=== PATIENT | male | born 1985 | race Caucasian/White ===

== ENCOUNTER → 2017-01-13 | Outpatient (CLI) | payer OTHER ==
[~2017-01-13] MED LIST: LORA10CA PO; PANT40TA2 PO
--- NOTE | 2017-01-13 16:12 | Diagnostic Imaging Report ---
PA and lateral views of the chest. INDICATION: Cough and dyspnea. Comparison: 12/29/2010. FINDINGS: The lungs are clear. The heart size is normal. No effusion or pneumothorax. The mediastinum and clyde appear unremarkable. IMPRESSION: Unremarkable exam. Dictated by: Dictated on workstation # [id number]
== END ==
LOC: RAD 10:02
PROVIDERS: ATTEND Nurse Practitioner
DX: R05 Cough (principal); R06.2 Wheezing; R06.09 Other forms of dyspnea
CPT/HCPCS: 71020

== ENCOUNTER → 2017-07-06 | Outpatient (CLI) | payer OTHER ==
--- NOTE | 2017-07-06 18:09 | Diagnostic Imaging Report ---
Three views of the cervical spine. INDICATION: Neck pain. FINDINGS: The alignment of the posterior spinal line is satisfactory. The vertebral body heights are preserved. Disc heights are also preserved. No widening of the predental space. There is satisfactory alignment of the lateral masses of C1 and C2. No significant degenerative changes or osteophyte formation seen. The prevertebral soft tissues appear unremarkable. IMPRESSION: Unremarkable exam. Dictated by: Dictated on workstation # [id number]
--- NOTE | 2017-07-06 18:10 | Diagnostic Imaging Report ---
EXAMINATION: Three views of the thoracic spine. INDICATION: Back pain. FINDINGS: There is straightening of the thoracic normal kyphotic curvature. This could be related to muscle spasm. The vertebral body heights are preserved. The disc heights are preserved. No significant osteophyte formation is seen. There is preserved alignment at the posterior spinal line. The paraspinous soft tissues demonstrate slightly prominent cardiac size, probably exaggerated by the AP projection with no definite abnormality otherwise. IMPRESSION: Straightening of the thoracic spine curvature, may relate to muscle spasm. Dictated by: Dictated on workstation # [id number]
== END ==
LOC: RAD 15:51
DX: M54.6 Pain in thoracic spine; M54.2 Cervicalgia
CPT/HCPCS: 72040; 72072

== ENCOUNTER → 2018-11-29 | Outpatient (CLI) | payer OTHER ==
--- NOTE | 2018-11-29 15:29 | Diagnostic Imaging Report ---
PROCEDURE: MR imaging cervical spine without contrast. TECHNIQUE: Multiplanar, multisequence MR imaging of the cervical spine was performed without contrast. INDICATION: Neck pain. COMPARISON: There are no prior MRI examinations available for comparison. The plain film examination of the cervical spine performed on 07/06/2017 failed to show any sign of an acute abnormality. FINDINGS: On the T2 sagittal images of this exam, the vertebral body heights appear to be within normal limits. The intervertebral disc spaces are well-maintained although there is desiccation of the disc at every level. Thecal sac is generous and there is no evidence for central stenosis at any level. There is mild narrowing of the neural foramina on the left at C4-5 and C3-4. No other significant neural foraminal narrowing is seen. There is no abnormal signal arising from the osseous structures to suggest bone edema or a fracture. There is no sign of a cord lesion. There is no paraspinal mass visualized. IMPRESSION: 1. There is mild narrowing of the neural foramen on the left at C3-4 and C4-5. There is no evidence for central stenosis at any level of the cervical spine. 2. There is no acute bony abnormality noted and there is no sign of a cord lesion. Dictated by: Dictated on workstation # [id number]
== END ==
LOC: RAD 14:25
PROVIDERS: ATTEND Nurse Practitioner Family
DX: M48.02 Spinal stenosis, cervical region (principal)
CPT/HCPCS: 72141

== ENCOUNTER → 2019-06-25 | Outpatient (CLI) | payer OTHER ==
--- NOTE | 2019-06-25 19:27 | Diagnostic Imaging Report ---
Exam: MRI right fifth finger without contrast. Date: June 25, 2019. Indication: 34-year-old male, right fifth finger mass. Comparison: None. Technique: Multiple dedicated MRI sequences without contrast at the level of the right fifth finger were obtained. Findings: At the area of focal patient concern which is denoted by a marker which is near the level of the fifth proximal interphalangeal joint at its radial aspect, there is a round T1 hypointense mass measuring 7.5 x 5.0 cm in axial dimension. The mass is difficult to appreciate on the provided coronal and sagittal sequences. Mass also appears fairly low signal on the fluid sensitive sequences. The mass is within the subcutaneous tissues and does not directly abut the adjacent flexor tendon of the fifth digit. Postcontrast imaging was not performed to assess for possible enhancement of the mass. The visualized flexor tendons are intact and without evidence of tenosynovitis. The visualized portions of the extensor tendons are intact. Additional soft tissue assessment is unremarkable. There is no prominent edema adjacent to the site of the mass. The bone marrow signal is unremarkable. Specifically, there is no bone lesion, fracture, bone contusion, or other bone marrow signal abnormality. There are some limitations of the exam relating to positioning of the patient, particularly on the coronal and sagittal sequences. The collateral ligaments at the level of the fifth metacarpophalangeal joint are intact and not well evaluated at the level of the 5th proximal interphalangeal joint. The volar plates appear grossly intact. Impression: 1. Nonspecific low signal mass within the subcutaneous tissues within the volar and radial aspect of the fifth digit at the level of the fifth proximal interphalangeal joint measuring 8 x 5 mm in size. There is no direct contact with the adjacent tendon sheath of the fifth digit flexor tendons. Both benign and malignant etiologies are in the differential diagnosis for the mass. Postcontrast imaging was not performed. Biopsy and/or excision may be needed for a definitive diagnosis. 2. Additional evaluation at the level of the right fifth finger is unremarkable. Dictated by: Dictated on workstation # [id number]
== END ==
LOC: RAD 13:06
PROVIDERS: ATTEND Orthopaedic Surgery
DX: R22.31 Localized swelling, mass and lump, right upper limb (principal)
CPT/HCPCS: 73218

== ENCOUNTER 2020-07-03 05:39 | Outpatient (CLI) | payer OTHER ==
[~2020-07-03] VITALS: Ht 185 cm; Wt 122.7 kg
[2020-07-03] MEDS ORDERED: CETI10TA17 PO (11:54)
[2020-07-03] MEDS ORDERED: MULT-1136 PO (11:54)
[2020-07-03] MEDS ORDERED: FLUT9.9S16 NS (11:54)
== END 2020-07-03 11:58 | disposition home or self-care (01) ==
LOC: PREOP 05:39
PROVIDERS: ATTEND Internal Medicine
DX: Z01.818 Encounter for other preprocedural examination (principal)

== ENCOUNTER → 2020-07-09 | Outpatient (CLI) | payer OTHER ==
[~2020-07-09] MED LIST changes: +CETI10TA17 PO; +FLUT9.9S16 NS; +MULT-1136 PO
== END ==
LOC: LABNPT 05:57
PROVIDERS: ATTEND Internal Medicine
DX: Z01.818 Encounter for other preprocedural examination (principal); Z01.812 Encounter for preprocedural laboratory examination; K62.89 Other specified diseases of anus and rectum; Z20.828 Contact with and (suspected) exposure to other viral communicable diseases
CPT/HCPCS: 87635

== ENCOUNTER 2020-07-11 07:40 | Day surgery (SDC) | payer OTHER ==
--- NOTE | 2020-06-30 06:38 | HISTORY AND PHYSICAL ---
DATE OF SERVICE: COLONOSCOPY HISTORY AND PHYSICAL HISTORY OF PRESENT ILLNESS: The patient is a 35-year-old white male referred by Dr. Gómez for diagnostic colonoscopy. He reports over the past year, although it has been worse over the past month, he has had increased left lower quadrant abdominal pressure alleviated with a bowel movement. He has had change in stool caliber with flattening of the stool and some small volume bright red blood per rectum. He also reports in the act of defecation, he will note tingling in the right lower extremity involving the thigh, knee and calf. He does not believe it goes down to the level of the foot. He has had no associated trauma. He reports a 30-pound weight gain over the last year or two. He denies night sweats, chills or fever. He Denies any constipation or diarrhea problems, although again he does note change in stool caliber. He has no past history of colonoscopy. He does report for heartburn type symptoms in 2016, underwent EGD evaluation per Dr. Wright. He was noted to have grade II erosive esophagitis per Dr. Wright with 2 small benign appearing distal gastric ulcers. He was H. pylori negative. He takes proton pump inhibitor therapy for a while and his symptoms resolved. He denies any significant heartburn symptoms currently, dysphagia or melena. 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 He has a 5-pack-year smoking history, but quit 12 years ago. He still reports drinking on average about 10 beers per day. FAMILY HISTORY: Father is living at the age of 58, had an CA at the age of 54. Mother is living at the age of 58 with history of hypertension with no known vascular disease. He is not aware of any history of colon cancer or other GI tract malignancies. Other than his parents, he does not know a lot about his family medical history. REVIEW OF SYSTEMS: CONSTITUTIONAL: Pertinent for a 30-pound weight gain over the past year. Denies night sweats, chills or fever. CARDIOVASCULAR: Denies chest pain, shortness of breath, syncope or presyncope. PULMONARY: Denies cough, wheezing or shortness of breath. GASTROINTESTINAL: As noted in the HPI. PHYSICAL EXAMINATION: GENERAL: Reveals a pleasant overweight white male in no acute distress. VITAL SIGNS: Weight 274 pounds, blood pressure 140/92. HEENT: Unremarkable. CHEST: Clear to auscultation. CARDIOVASCULAR: Reveals a regular rate and rhythm without murmur, S3 or S4. ABDOMEN: Soft, supple without mass or organomegaly. He has left upper quadrant and left lower quadrant discomfort to palpation. EXTREMITIES: Reveal no cyanosis, clubbing or edema. RECTAL: Deferred at the time of colonoscopy. ASSESSMENT AND PLAN: The patient is set up for diagnostic colonoscopy due to left lower quadrant and left upper quadrant abdominal pain, rectal pain and change in stool caliber. Prep instructions with Suprep kit were given and questions were answered. I thank you for the referral of this pleasant gentleman. Job ID: [id number] DocumentID: [id number] Dictated Date: 06/25/2020 16:15:18 Financial Processing Clerk Date: 06/25/2020 17:18:45 Dictated By: ROCKY OROZCO MD MTDD
[~2020-07-11] VITALS: Ht 185 cm; Wt 122.7 kg
[2020-07-11] VITALS (8 sets, daily range): BP systolic 109–138; BP diastolic 66–83
[2020-07-11] MEDS ORDERED: LACTATED RINGERS 1,000 ML IV ONE (07:56)
[2020-07-11] MEDS ORDERED: LACTATED RINGERS 1,000 ML IV PRN (08:00)
[2020-07-11] MEDS ORDERED: proPOfol 200 MG/20 ML (DIPRIVAN) VIAL IV ONE (08:33)
[2020-07-11] MEDS ORDERED: LIDOCAINE JELLY 2% 6 ML SYRINGE ONE (08:34)
[2020-07-11] MEDS ORDERED: MIDAZOLAM 2 MG/2 ML (VERSED) VIAL ONE (08:34)
--- NOTE | 2020-07-11 08:40 | Pre-Op Note & Conscious Sedat ---
Pre-Operative Progress Note H&P Reviewed The H&P was reviewed, patient examined and no changes noted. Date H&P Reviewed: Jul 11, 2020 Time H&P Reviewed: 08:00 Conscious Sedation Pre-Proced ASA Score 2 For ASA 3 and 4: Consider anesthesia and medical clearance. Also, for patients with a history of failed moderate sedation consider anesthesia. Airway Lungs Heart ASA score ASA 1: a normal healthy patient ASA 2: a patient with a mild systemic disease (mid diabetes, controlled hypertension, obesity ASA 3: a patient with a severe systemic disease that limits activity (angina, COPD, prior Myocardial infarction) ASA 4: a patient with an incapacitating disease that is a constant threat to life (CHF, renal failure) ASA 5: a moribund patient not expected to survive 24 hrs. (ruptured aneurysm) ASA 6: a declared brain- patient whose organs are being harvested. For emergent operations, add the letter E after the classification Mallampati Classification Grade 3 Sedation Plan Analgesia, Amnesia, Plan communicated to team members, Discussed options with patient/fam, Discussed risks with patient/fam The patient is an appropriate candidate to undergo the planned procedure, sedation, and anesthesia. The patient immediately re-assessed prior to indication. ROCKY OROZCO MD Jul 11, 2020 08:40
[2020-07-11] MEDS ORDERED: LIDOCAINE JELLY 2% 6 ML SYRINGE TOP ONE (09:15)
--- NOTE | 2020-07-11 09:57 | Anesthesia-General Post-Op ---
MAC Patient Condition Mental Status/LOC: Same as Preop Cardiovascular: Satisfactory Nausea/Vomiting: Absent Respiratory: Satisfactory Pain: Controlled Complications: Absent Post Op Complications Complications None Follow Up Care/Instructions Patient Instructions None needed. Anesthesiology Discharge Order Discharge Order Patient is doing well, no complaints, stable vital signs, no apparent adverse anesthesia problems. KIM BAÑUELOS DO Jul 11, 2020 09:56
--- NOTE | 2020-07-11 21:28 | OPERATIVE REPORT ---
DATE OF SERVICE: COLONOSCOPY SUMMARY INDICATION FOR THE PROCEDURE: Rectal pain, left lower quadrant abdominal pain and change in stool caliber. DESCRIPTION OF PROCEDURE: The patient was placed in the left lateral decubitus position. Prior to undergoing colonoscopy, digital rectal evaluation was performed. Anal sphincter tone was normal and the perianal reflexes intact. No abnormalities were noted on digital inspection of anal canal or distal rectal vault. The colonoscope was then inserted into the rectum and under direct visualization advanced to cecum. The cecum was identified by identification of the ileocecal valve and cecal strap. Photographic documentation was obtained. Quality of prep was good. The patient tolerated the procedure well under Diprivan based anesthesia. There was no evidence for internal or external hemorrhoids and the rectum was unremarkable. Present in the distal sigmoid colon was a diminutive 3 mm sessile polyp. It was photographed and biopsied and ablated with no subsequent blood loss. The remainder of the sigmoid colon was unremarkable. No evidence for diverticular disease was noted. The descending colon, splenic flexure, transverse colon, hepatic flexure, ascending colon and cecum were unremarkable. ASSESSMENT: One diminutive polyp was removed from the distal sigmoid colon. As long as there are no surprise on histopathology, will likely be advocating a screening colonoscopy in 10 years. The patient was reassured by today's findings. 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 He reports it has been going on for 2 years and it comes and goes. Discussed if it is getting worse, he should return to see Dr. Gómez and discuss consideration for lumbar MRI evaluation. I thank you for the referral of this pleasant gentleman. Job ID: [id number] DocumentID: [id number] Dictated Date: 07/11/2020 11:32:55 Manager Athletics Date: 07/11/2020 21:27:20 Dictated By: ROCKY OROZCO MD MTDD
== END 2020-07-11 09:55 | disposition home or self-care (01) ==
LOC: ENDO 07:40
PROVIDERS: ATTEND Internal Medicine
DX: K63.5 Polyp of colon (principal); R20.2 Paresthesia of skin; K21.9 Gastro-esophageal reflux disease without esophagitis; L40.9 Psoriasis, unspecified; Z87.19 Personal history of other diseases of the digestive system; Z87.891 Personal history of nicotine dependence
CPT/HCPCS: 88305

== ENCOUNTER 2021-09-17 07:30 | Outpatient (RCR) | payer OTHER ==
[~2021-09-17] VITALS: Ht 185 cm; Wt 122.0 kg
[2021-09-17] MEDS ORDERED: CATHETER FLUSH 10 ML SYR IV PRN (08:00)
--- NOTE | 2021-09-17 11:33 | NUCLEAR STRESS TEST ---
TREADMILL NUCLEAR STRESS TEST Date of procedure: 09/17/2021. Primary care provider: Miguel Angel Gómez MD. Admitting physician: Hussain Lara Jr., MD. INDICATION: Abnormal electrocardiogram. BASELINE ELECTROCARDIOGRAM: Sinus rhythm with possible old inferolateral myocardial infarction. STRESS TEST PROCEDURE: The patient was exercised for a total of 8 minutes and 43 seconds of the standard Miguel A protocol achieving a maximum MET level of 10.3. The resting heart rate was 69 bpm and the peak heart rate was 163 bpm, which represents 89% of the maximum predicted heart rate. The resting blood pressure was 131/85 mmHg and the peak blood pressure was 198/85 mmHg. This represents a normal heart rate and a normal blood pressure response to exercise. The test was stopped due to fatigue. There was no chest discomfort during the test. There were no arrhythmias during the test. There were no significant stress induced electrocardiogram changes. The patient exhibited good exercise capacity for age. NUCLEAR PROCEDURE: The patient was administered 10.2 mCi of intravenous technetium 99m Tetrofosmin at rest for the rest images. The patient was subsequently administered 30.5 mCi of intravenous technetium 99 M Tetrofosmin at peak stress for the stress images. Following an appropriate wait after each injection, imaging was obtained. The images were subsequently processed and reformatted in the usual views. Gated imaging was obtained. The image quality was adequate with a mild degree of gastrointestinal attenuation artifact. CT attenuation correction was used as a adjunct to standard imaging. Both the corrected and uncorrected images were reviewed for interpretation. NUCLEAR RESULTS: There was normal myocardial perfusion in all segments without evidence of infarction or ischemia. There was normal left ventricular chamber size with an end-diastolic volume of 81 mL and an end-systolic volume of 35 mL. There was no evidence of transient ischemic dilatation. The TID ratio was 0.95. There was normal wall motion in all segments with a calculated ejection fraction of 58%. IMPRESSION: 1. Normal heart rate and blood pressure response to exercise. 2. There was no chest discomfort, arrhythmias, or electrocardiogram changes during the test. 3. The patient exhibited good exercise capacity for age at 8 minutes and 43 seconds of the Miguel A protocol. 4. There was normal myocardial perfusion in all segments without evidence of infarction or ischemia. 5. There was normal wall motion in all segments with a calculated ejection fraction 58%. Certain portions of this document may have been dictated utilizing voice recognition technology. Inherent to this technology, typographical and grammatical errors may exist. As much as I am diligent to identify and correct these mistakes, some errors may remain in the document. HUSSAIN LARA JR, MD Sep 17, 2021 11:33
--- NOTE | 2021-09-30 18:21 | 30 Day Event Recorder ---
30-DAY EVENT RECORDER 30-DAY EVENT RECORDER DATE OF PROCEDURE: 09/17/2021-09/30/2021. INDICATION: Palpitation. PROCEDURE: A 30-day event recorder was obtained for a total of 13 days. 16 rhythm strips were presented for review. The study quality is adequate although terminated early due to the patient needing to return to work. RESULTS: 1. The baseline tracing demonstrates sinus rhythm at a heart rate of 88 bpm. 2. Review of the 16 rhythm strips demonstrates sinus rhythm with heart rates ranging from 68-96 bpm and on 5 of these rhythm strips there were isolated premature ventricular complexes. 3. There were 11 patient triggered events during which times the patient was in sinus rhythm with heart rates ranging from 72-96 bpm and during for these events there were isolated premature ventricular complexes. IMPRESSION: 1. This is a 30-day event monitor that was obtained for total of 13 days and 16 rhythm strips were presented for review. 2. Review of the 16 rhythm strips demonstrates sinus rhythm with heart rates ranging from 68-96 bpm and on 5 of these rhythm strips there were isolated premature ventricular complexes. 3. There were 11 patient triggered events during which times the patient was in sinus rhythm with heart rates ranging from 72-96 bpm and during for these events there were isolated premature ventricular complexes. 4. The patient may be sensing premature ventricular complexes. There were no high-grade bradyarrhythmias or tachyarrhythmias during the study. Certain portions of this document may have been dictated utilizing voice recognition technology. Inherent to this technology, typographical and grammatical errors may exist. As much as I am diligent to identify and correct these mistakes, some errors may remain in the document. SHABANA COOK JR, MD Sep 30, 2021 18:21
== END 2021-10-02 | disposition home or self-care (01) ==
LOC: CARD 07:30
PROVIDERS: ATTEND Internal Medicine Cardiovascular Disease
DX: I51.7 Cardiomegaly (principal)
CPT/HCPCS: 78452; 93017; 93270; 93306; A9502